=== PATIENT | female | born 1945 | race Caucasian/White ===

== ENCOUNTER 2016-07-09 12:26 | Inpatient (IN) | payer MEDICARE ==
--- NOTE | 2016-07-09 12:47 | ER Document Report ---
ED Medical Screen (RME) - General Chief Complaint: Chest Pain Stated Complaint: WEAKNESS Time seen by provider: 12:45 Mode of Arrival: Wheelchair Information source: Patient Notes: 70-year-old female presents to ED for chest pain shortness of breath sweats weakness and fatigue. She states she had open heart surgery 11/14/2015. She said the shortness of breath and weakness has been going on for about a week but it's gotten much worse in the last 2 days. One-vessel bypass I have greeted and performed a rapid initial assessment of this patient. A comprehensive ED assessment and evaluation of the patient, analysis of test results and completion of medical decision making process will be conducted by an additional ED providers. TRAVEL OUTSIDE OF THE [place] IN LAST 30 DAYS: No - Related Data Allergies/Adverse Reactions: No Known Allergies Allergy (Verified 06/14/13 21:35) Past Medical History - Past Medical History Cardiac Medical History: Reports: Hx Heart Attack, Hx Hypercholesterolemia, Hx Hypertension - meds since 2006,thought meds were for heart not BP Denies: Hx Coronary Artery Disease Pulmonary Medical History: Denies: Hx Asthma, Hx Bronchitis, Hx COPD, Hx Pneumonia Neurological Medical History: Denies: Hx Cerebrovascular Accident, Hx Seizures GI Medical History: Musculoskeltal Medical History: Reports Hx Arthritis - back, knees Psychiatric Medical History: Reports: Hx Depression Infectious Medical History: Past Surgical History: Reports: Hx Cardiac Catheterization, Hx Mastectomy - right side, Hx Orthopedic Surgery - left total knee replaced 2009. Denies: Hx Pacemaker - Immunizations Hx Diphtheria, Pertussis, Tetanus Vaccination: No Physical Exam - Vital signs Vitals: Temp Pulse Resp BP Pulse Ox 98.1 F 115 H 20 118/60 98 07/09/16 12:43 07/09/16 12:43 07/09/16 12:43 07/09/16 12:43 07/09/16 12:43 Course - Vital Signs Vital signs: Temp Pulse Resp BP Pulse Ox 98.1 F 115 H 20 118/60 98 07/09/16 12:43 07/09/16 12:43 07/09/16 12:43 07/09/16 12:43 07/09/16 12:43
[2016-07-09] MEDS ORDERED: ASPIRIN 81 MG TABLET, CHEWABLE PO ONE (12:49)
[2016-07-09 13:22] LABS: ABSOLUTE LYMPHOCYTES (AUTO) 1.5 10^3/uL (0.5-4.7); ABSOLUTE MONOCYTES (AUTO) 0.7 10^3/uL (0.1-1.4); ABSOLUTE NEUT (AUTO) 6.2 10^3/uL (1.7-8.2); BASOPHILS % (AUTO) 0.3 % (0-2); EOSINOPHILS % (AUTO) 0.1 % (0-6); HEMATOCRIT 32.7 % (36.0-47.0); HEMOGLOBIN 10.5 g/dL (12.0-15.5); HGB HCT DIFFERENCE -1.2; LYMPHOCYTES % (AUTO) 17.6 % (13-45); MEAN CORPUSCULAR HGB CONC 32.2 g/dL (32.0-36.0); MEAN CORPUSCULAR VOLUME 87 fl (80-97); MONOCYTES % (AUTO) 7.8 % (3-13); RED BLOOD COUNT 3.75 10^6/uL (3.72-5.28); RED CELL DISTRIBUTION WIDTH 17.2 % (11.5-14.0); SEGMENTED NEUTROPHILS % (AUTO) 74.2 % (42-78); WHITE BLOOD COUNT 8.4 10^3/uL (4.0-10.5)
[2016-07-09 13:41] LABS: ALANINE AMINOTRANSFERASE 30 U/L (9-52); ALKALINE PHOSPHATASE 103 U/L (38-126); ANION GAP 17 (5-19); ASPARTATE AMINO TRANSFERASE 31 U/L (14-36); BILIRUBIN,TOTAL 1.1 mg/dL (0.2-1.3); BLOOD UREA NITROGEN 20 mg/dL (7-20); CALCIUM 9.7 mg/dL (8.4-10.2); CARBON DIOXIDE 24 mmol/L (22-30); CHLORIDE 102 mmol/L (98-107); CREATINE KINASE 22 U/L (30-135); CREATININE RESULT 1.03 mg/dL (0.52-1.25); GLUCOSE 103 mg/dL (75-110); MAGNESIUM 1.7 mg/dL (1.6-2.3); POTASSIUM 4.8 mmol/L (3.6-5.0); SODIUM 142.9 mmol/L (137-145); TOTAL PROTEIN 7.3 g/dL (6.3-8.2)
[2016-07-09 13:55] LABS: CREATINE KINASE MB 0.45 ng/mL (<4.55)
[2016-07-09 13:56] LABS: TROPONIN I < 0.012 ng/mL
[2016-07-09] MEDS ORDERED: LORAZEPAM INJ 2 MG/1 ML VIAL IV ONE (14:30)
--- NOTE | 2016-07-09 14:41 | ER Document Report ---
ED General - General Mode of Arrival: Wheelchair Information source: Patient TRAVEL OUTSIDE OF THE [place] IN LAST 30 DAYS: No - HPI Onset: Other - see narrative Onset/Duration: Intermittent Quality of pain: Sharp, Stabbing Associated symptoms: Other - see narrative <MARINE LYNN - Last Filed: 07/09/16 14:42> <RIC ALMARAZ - Last Filed: 07/09/16 21:50> - General Chief Complaint: Chest Pain Stated Complaint: WEAKNESS Notes: Patient is a 70-year-old female that presents to the emergency department today with complaints of chest pain, generalized fatigue, and shortness of breath. Patient states she has been under stress recently, one week ago her sister fell and fractured her hip which has placed increased stress on the patient. Patient states for 3 days her shortness of breath and chest pain have increased. Patient states her chest pain is sharp and stabbing, and is intermittent. Patient states she feels like her muscles in her back and shoulders tighten and she is only able to take a few steps before feeling short of breath. Patient states even when lying down she feels like she needs to take deeper breaths. Patient is on a 325 mg aspirin daily. Patient appears to be depressed. (MARINE LYNN) - Related Data Allergies/Adverse Reactions: No Known Allergies Allergy (Verified 06/14/13 21:35) Past Medical History - General Information source: Patient, [facility] Records - Social History Smoking Status: Never Smoker Cigarette use (# per day): No Frequency of alcohol use: None Drug Abuse: None Lives with: Family Family History: Reviewed & Not Pertinent Patient has suicidal ideation: No Patient has homicidal ideation: No - Past Medical History Cardiac Medical History: Reports: Hx Heart Attack, Hx Hypercholesterolemia, Hx Hypertension - meds since 2006 Pulmonary Medical History: Malignancy Medical History: Reports: Hx Breast Cancer - With right-sided mastectomy GI Medical History: Musculoskeltal Medical History: Reports Hx Arthritis - back, knees Psychiatric Medical History: Reports: Hx Depression Infectious Medical History: Past Surgical History: Reports: Hx Cardiac Catheterization, Hx Mastectomy - right side, Hx Orthopedic Surgery - left total knee replaced 2009 - Immunizations Hx Diphtheria, Pertussis, Tetanus Vaccination: No Hx Pneumococcal Vaccination: 06/17/05 <MARINE LYNN - Last Filed: 07/09/16 14:42> Review of Systems - Review of Systems Constitutional: See HPI, Diaphoresis, Other - fatigue EENT: No symptoms reported Cardiovascular: See HPI, Chest pain Respiratory: See HPI, Short of breath Gastrointestinal: No symptoms reported Genitourinary: No symptoms reported Female Genitourinary: No symptoms reported Musculoskeletal: See HPI, Other - muscles "tightning" Skin: No symptoms reported Hematologic/Lymphatic: No symptoms reported Neurological/Psychological: No symptoms reported -: Yes All other systems reviewed and negative <MARINE LYNN - Last Filed: 07/09/16 14:42> Physical Exam - Vital signs Interpretation: No: Hypoxic, Tachypneic - General General appearance: Alert In distress: None - HEENT Head: Normocephalic, Atraumatic Eyes: Normal Conjunctiva: Normal Extraocular movements intact: Yes - Respiratory Respiratory status: No respiratory distress Breath sounds: Normal - Cardiovascular Rhythm: Regular Heart sounds: Normal auscultation Murmur: No - Abdominal Inspection: Obese Distension: No distension Tenderness: Nontender - Back Back: Tender - Posterior cervical muscles and trapezius muscles are tender with palpation - Extremities General upper extremity: Normal inspection, Nontender, Normal ROM. No: Edema General lower extremity: Normal inspection, Nontender, Normal ROM. No: Edema - Neurological Neuro grossly intact: Yes Cognition: Normal Orientation: AAOx4 - Psychological Associated symptoms: Depressed <MARINE LYNN - Last Filed: 07/09/16 14:42> <RIC ALMARAZ - Last Filed: 07/09/16 21:50> - Vital signs Vitals: Temp Pulse Resp BP Pulse Ox 98.1 F 115 H 20 118/60 98 07/09/16 12:43 07/09/16 12:43 07/09/16 12:43 07/09/16 12:43 07/09/16 12:43 (MARINE LYNN) (RIC ALMARAZ) - Skin Notes: Diffuse excoriations in various stages of healing on arms bilaterally (MARINE LYNN) Course - Laboratory Result Diagrams: 07/09/16 13:00 07/09/16 13:00 <MARINE LYNN - Last Filed: 07/09/16 14:42> - Laboratory Result Diagrams: 07/09/16 13:00 07/09/16 13:00 - Diagnostic Test Radiology reviewed: Image reviewed, Reports reviewed - Chest x-ray showed right mastectomy, no acute process. - EKG Interpretation by Me EKG shows normal: Sinus rhythm, Patriot, Intervals, QRS Complexes, ST-T Waves Rate: Normal - 97 Rhythm: NSR - Consults Dr. Gonzalez Time consulted: 21:50 Consulted provider: will come to ER <RIC ALMARAZ - Last Filed: 07/09/16 21:50> - Re-evaluation Re-evalutation: 07/09/16 15:00 The patient complains of fatigue, intermittent sharp left-sided chest pains, dyspnea on exertion with an underlying pervasive dyspnea. Her EKG chest x-ray cardiac enzymes are all normal. Her d-dimer is elevated at 2.83, we'll get a CTA chest to exclude pulmonary embolus as a cause of her symptoms. 07/09/16 21:49 CT scan shows extensive mediastinal adenopathy consistent with lymphoma or metastatic disease. This is probably the source of her elevated dimer and her symptoms. She had a CTA chest in 2012 which did not show any of this disease. ( RIC ALMARAZ) - Vital Signs Vital signs: Temp Pulse Resp BP Pulse Ox 98.1 F 115 H 19 106/79 96 07/09/16 12:44 07/09/16 12:44 07/09/16 21:00 07/09/16 14:08 07/09/16 21:00 (MARINE LYNN) (RIC ALMARAZ) - Laboratory Laboratory results interpreted by me: 07/09/16 07/09/16 07/09/16 13:00 13:00 13:00 Hgb 10.5 L Hct 32.7 L RDW 17.2 H D-Dimer 2.83 H Est GFR (Non-Af Amer) 53 L Creatine Kinase 22 L (MARINE LYNN) (RIC ALMARAZ) Discharge <MARINE LYNN - Last Filed: 07/09/16 14:42> - Discharge Admitting Provider: Hospitalist Unit Admitted: Telemetry <RIC ALMARAZ - Last Filed: 07/09/16 21:50> - Discharge Clinical Impression: Mediastinal adenopathy Dyspnea Qualifiers: Dyspnea type: unspecified Qualified Code(s): R06.00 - Dyspnea, unspecified Condition: Stable Disposition: ADMITTED INPATIENT Referrals: BJ MARLOW MD [Primary Care Provider] - Follow up as needed Scribe Attestation: 07/09/16 21:50 I personally performed the services described in the documentation, reviewed and edited the documentation which was dictated to the scribe in my presence, and it accurately records my words and actions. (RIC ALMARAZ) Scribe Documentation - Scribe Written by Scribe:: Kelli Nunez, [id number] 07/09/16 acting as scribe for :: Rianna <MARINE LYNN - Last Filed: 07/09/16 14:42>
--- NOTE | 2016-07-09 15:50 | EKG REPORT ---
SEVERITY:- NORMAL ECG - SINUS RHYTHM : Confirmed by: Jose Mann 09-Jul-2016 15:49:42
--- NOTE | 2016-07-09 18:43 | Operative Report ---
Operative Report DATE OF SURGERY: 07/09/16 PREOPERATIVE DIAGNOSIS: Acute chest pain POSTOPERATIVE DIAGNOSIS: Same OPERATION: 1. Focused ultrasound the right groin. 2. Ultrasound directed insertion of triple-lumen central venous access catheter SURGEON: AC LEROY ANESTHESIA: Local TISSUE REMOVED OR ALTERED: None COMPLICATIONS: None ESTIMATED BLOOD LOSS: minimal INTRAOPERATIVE FINDINGS: See below PROCEDURE: Patient was seen in the emergency department, room 3, right groin was exposed. His prepped and draped sterile fashion. Surgical plan surgical timeout were conducted. Using the variable frequency linear transducer, the right groin was scanned. The common femoral vein was felt to be suitable for cannulation Skin was anesthetized 1% lidocaine without epinephrine. Using the Seldinger technique, with ultrasound as a guide, triple-lumen central venous access catheter was threaded into The right femoral vein. There was excellent blood flow through all 3 lm. Catheter flushed with saline. Skin with 2-0 silk suture. Sterile dressings applied. Postoperative procedure well.
[2016-07-09] MEDS ORDERED: MAGNESIUM HYDROXIDE SUSP 30 ML UDCUP PO PRN (21:48)
[2016-07-09] MEDS ORDERED: IPRATROPIUM/ALBUTEROL 0.5-2.5 MG/3 ML AMPUL NEB PRN (21:48)
[2016-07-09] MEDS ORDERED: ACETAMINOPHEN 325 MG TABLET PO PRN (21:48)
[2016-07-09] MEDS ORDERED: ONDANSETRON HCL INJ/PF 4 MG/2 ML SDV IV PRN (21:48)
[2016-07-09] MEDS ORDERED: ATORVASTATIN CALCIUM 40 MG TABLET PO SCH (22:00)
[2016-07-09 23:47] LABS: CREATINE KINASE MB 0.34 ng/mL (<4.55)
[2016-07-09 23:52] LABS: TROPONIN I < 0.012 ng/mL
[2016-07-10] MEDS: HEPARIN SOD (PORCINE) 5,000 UNIT/ML 1 ML SYRINGE SUBCUT SCH ×2 (02:41→07:09)
[2016-07-10] MEDS ORDERED: ACETAMINOPHEN 325 MG TABLET PO PRN (04:07)
--- NOTE | 2016-07-10 04:42 | PDOC H&P ---
History of Present Illness Admission Date/PCP: 07/09/16 21:59 BJ MARLOW MD Patient complains of: Chest pain and shortness of breath History of Present Illness: MATILDE STEPHENS is a 70 year old female with a past medical history of coronary artery disease status post coronary artery bypass grafting in October 2015, and right-sided breast cancer status post mastectomy and chemotherapy completion greater than 4 years ago. She has been her usual state of health until approximately 3 weeks ago noting to have extraordinary fatigue, 40 pound weight loss in 6 months, night sweats sharp chest pain with while at rest prompting her to seek evaluation emergency room. History indicated a CT of the chest which required a central line placed in the right groin, the CT resulted include massive mediastinal adenopathy but no pulmonary emboli. Images referred to the hospitalist for admission. Past Medical History Cardiac Medical History: Reports: Myocardial Infarction, Hyperlipidema, Hypertension - meds since 2006 Denies: Coronary Artery Disease Pulmonary Medical History: Denies: Asthma, Bronchitis, Chronic Obstructive Pulmonary Disease (COPD), Pneumonia Neurological Medical History: Denies: Seizures Malignancy Medical History: Reports: Breast Cancer - With right-sided mastectomy GI Medical History: Musculoskeltal Medical History: Reports: Arthritis - back, knees Psychiatric Medical History: Reports: Depression Denies: Substance Abuse, Tobacco Dependency Hematology: Denies: Anemia Past Surgical History Past Surgical History: Reports: Cardiac Catheterization, Mastectomy - right side , Orthopedic Surgery - left total knee replaced 2009 Denies: Pacemaker Social History Lives with: Family Smoking Status: Never Smoker Frequency of Alcohol Use: None Hx Recreational Drug Use: No Drugs: None - Advance Directive Resuscitation Status: Full Code Family History Family History: COPD, Malignancy Parental Family History Reviewed: Yes Children Family History Reviewed: Yes Sibling(s) Family History Reviewed.: Yes Medication/Allergy Home Medications: Metoprolol Tartrate [Lopressor 25 mg Tablet] 50 mg PO BID 05/14/11 Atorvastatin Calcium [Lipitor 40 mg Tablet] 80 mg PO QHS 01/09/13 Letrozole [Femara 2.5 mg Tablet] 2.5 mg PO DAILY 01/09/13 Aspirin [Aspirin EC] 1 tab PO DAILY 06/14/13 B12/Levomefolate Calcium/B-6 [Wollx-Halnlaeyqa-Rkkttbzqh Tb] 1 tab PO DAILY Venlafaxine HCl ER [Effexor Xr 75 mg Cap.sr] 1 tab PO DAILY 06/14/13 Allergies/Adverse Reactions: No Known Allergies Allergy (Verified 06/14/13 21:35) Review of Systems Constitutional: PRESENT: anorexia, chills, fatigue, night sweats, weakness, weight loss Eyes: ABSENT: visual disturbances Ears: ABSENT: hearing changes Nose, Mouth, and Throat: ABSENT: headache(s), mouth pain, sore throat Breasts: PRESENT: as per HPI Cardiovascular: PRESENT: other - Reproducible costochondral pain. ABSENT: chest pain, dyspnea on exertion, edema, orthropnea, palpitations Respiratory: PRESENT: cough, dyspnea. ABSENT: hemoptysis, sputum Gastrointestinal: ABSENT: abdominal pain, constipation, diarrhea, hematemesis, hematochezia, nausea, vomiting Genitourinary: ABSENT: dysuria, hematuria Musculoskeletal: ABSENT: joint swelling Integumentary: ABSENT: rash, wounds Neurological: ABSENT: abnormal gait, abnormal speech, confusion, dizziness, focal weakness, syncope Psychiatric: ABSENT: anxiety, depression, homidical ideation, suicidal ideation Endocrine: ABSENT: cold intolerance, heat intolerance, polydipsia, polyuria Hematologic/Lymphatic: ABSENT: easy bleeding, easy bruising Physical Exam Vital Signs: Temp Pulse Resp BP Pulse Ox 98.3 F 105 H 18 133/52 H 98 07/10/16 02:47 07/10/16 02:47 07/10/16 02:47 07/10/16 02:47 07/10/16 02:47 General appearance: PRESENT: no acute distress, cooperative, obese, well- developed, well-nourished. ABSENT: disheveled Head exam: PRESENT: atraumatic, normocephalic Eye exam: PRESENT: conjunctiva pink, EOMI, PERRLA. ABSENT: scleral icterus Ear exam: PRESENT: normal external ear exam Mouth exam: PRESENT: moist, tongue midline Neck exam: ABSENT: carotid bruit, JVD, lymphadenopathy, thyromegaly Respiratory exam: PRESENT: clear to auscultation bhanu. ABSENT: rales, rhonchi, wheezes Cardiovascular exam: PRESENT: RRR. ABSENT: diastolic murmur, rubs, systolic murmur Pulses: PRESENT: normal dorsalis pedis pul Vascular exam: PRESENT: normal capillary refill GI/Abdominal exam: PRESENT: normal bowel sounds, soft. ABSENT: distended, guarding, mass, organolmegaly, rebound, tenderness Rectal exam: PRESENT: deferred Extremities exam: PRESENT: full ROM. ABSENT: calf tenderness, clubbing, pedal edema Neurological exam: PRESENT: alert, awake, oriented to person, oriented to place , oriented to time, oriented to situation, CN II-XII grossly intact. ABSENT: motor sensory deficit Psychiatric exam: PRESENT: appropriate affect, normal mood. ABSENT: homicidal ideation, suicidal ideation Skin exam: PRESENT: dry, intact, warm. ABSENT: cyanosis, rash Results Laboratory Results: 07/09/16 07/09/16 22:55 22:55 Creatine Kinase < 20 L CK-MB (CK-2) 0.34 Troponin I < 0.012 Impressions: Chest X-Ray 07/09/16 12:48 IMPRESSION: No acute changes Chest/Abdomen CTA 07/09/16 14:58 IMPRESSION: No evidence for pulmonary embolic disease. No consolidations or pleural effusions are identified. There is extensive mediastinal adenopathy. Adenopathy is also identified in the periaortic region and retrocrural adenopathy is seen. Clinical correlation is recommended. The possibility of a lymphoma or metastatic disease should be considered. Other findings as noted above Assessment & Plan - Diagnosis (1) Chest pain Is this a current diagnosis for this admission?: YesPlan: Though patient has to sources of chest pain her current sharp pain is atypical for coronary artery disease, she does have costochondral pain following open heart surgery she'll receive symptomatic management and second sharp pain associated with respirations likely secondary to mediastinal malignancy and will receive workup and symptomatically management (2) Dyspnea Qualifiers: Dyspnea type: unspecified Qualified Code(s): R06.00 - Dyspnea, unspecified Is this a current diagnosis for this admission?: YesPlan: Albuterol, Atrovent utilizer and oxygen trial, with symptomatically management (3) Mediastinal adenopathy Is this a current diagnosis for this admission?: YesPlan: Oncology consult - Time Time Spent: 50 to 70 Minutes
[2016-07-10 06:02] LABS: ABSOLUTE BASOPHILS # (AUTO) 0.1 10^3/uL (0.0-0.2); ABSOLUTE LYMPHOCYTES (AUTO) 0.9 10^3/uL (0.5-4.7); ABSOLUTE MONOCYTES (AUTO) 0.6 10^3/uL (0.1-1.4); ABSOLUTE NEUT (AUTO) 5.5 10^3/uL (1.7-8.2); BASOPHILS % (AUTO) 0.8 % (0-2); EOSINOPHILS % (AUTO) 0.3 % (0-6); HEMATOCRIT 28.4 % (36.0-47.0); HEMOGLOBIN 9.1 g/dL (12.0-15.5); HGB HCT DIFFERENCE -1.1; LYMPHOCYTES % (AUTO) 12.8 % (13-45); MEAN CORPUSCULAR HGB CONC 32.1 g/dL (32.0-36.0); MEAN CORPUSCULAR VOLUME 87 fl (80-97); MONOCYTES % (AUTO) 8.4 % (3-13); RED BLOOD COUNT 3.26 10^6/uL (3.72-5.28); RED CELL DISTRIBUTION WIDTH 16.9 % (11.5-14.0); SEGMENTED NEUTROPHILS % (AUTO) 77.7 % (42-78); WHITE BLOOD COUNT 7.1 10^3/uL (4.0-10.5)
[2016-07-10 06:11] LABS: ANION GAP 11 (5-19); BLOOD UREA NITROGEN 18 mg/dL (7-20); CALCIUM 8.9 mg/dL (8.4-10.2); CARBON DIOXIDE 26 mmol/L (22-30); CHLORIDE 102 mmol/L (98-107); CHOLESTEROL 141.53 mg/dL (0-200); CREATININE RESULT 0.87 mg/dL (0.52-1.25); Direct HDL 30 mg/dL (>40); GLUCOSE 104 mg/dL (75-110); POTASSIUM 3.9 mmol/L (3.6-5.0); SODIUM 138.9 mmol/L (137-145); TRIGLYCERIDES 146 mg/dL (<150)
[2016-07-10 06:22] LABS: DIRECT LDL 89 mg/dL (<100)
[2016-07-10 06:23] LABS: CREATINE KINASE MB 0.35 ng/mL (<4.55)
[2016-07-10 06:27] LABS: CREATINE KINASE < 20 U/L (30-135); TROPONIN I < 0.012 ng/mL
--- NOTE | 2016-07-10 08:20 | PDOC CONSULTATION ---
Consultation Consult Date: 07/10/16 Attending physician:: JEFF VILLAFANA Consult reason:: New diffuse LAD w/ hx of stage III breast cancer, recent CP and SOB History of Present Illness Admission Date/PCP: 07/09/16 21:48 BJ MARLOW MD Patient complains of: SOB/CP History of Present Illness: 70-year-old female who I've known now for about 5 years with previous history of stage III breast cancer, status post surgery and chemotherapy, was been disease free for greater than 4 years now. He is also had significant history of cardiovascular disease and ultimately had CABG done in October of last year. Since the CABG she has had significant costochondritis. Recently, her sister who had been with her for several years caring for her through her multiple issues over the years, fell and broke her hip. So now Deisy was having to take care of her sister, and was very active try to get her up and move around. Over the last 1-2 weeks she's been experiencing increasing chest pain some palpitations and shortness of breath. Ultimately this culminated in fairly severe shortness of breath and chest pain and she came into the ED. She had a cardiac workup which initially was negative. She had a d-dimer evaluation which was positive, this resulted in her getting a CTA, this indicated no pulmonary embolism but indicated mediastinal retroperitoneal adenopathy. The seem to be a change from previous imaging that was done over 4 years ago. She denies any significant weight loss. She denies any fevers chills or night sweats. Prior to the last 2 weeks she's been actually feeling quite well, we saw her about 3 months ago and at that time she was doing quite well. Past Medical History Cardiac Medical History: Reports: Myocardial Infarction, Hyperlipidema, Hypertension - meds since 2006 Denies: Coronary Artery Disease Pulmonary Medical History: Denies: Asthma, Bronchitis, Chronic Obstructive Pulmonary Disease (COPD), Pneumonia Neurological Medical History: Denies: Seizures Malignancy Medical History: Reports: Breast Cancer - With right-sided mastectomy GI Medical History: Musculoskeltal Medical History: Reports: Arthritis - back, knees Psychiatric Medical History: Reports: Depression Denies: Substance Abuse, Tobacco Dependency Hematology: Denies: Anemia Past Surgical History Past Surgical History: Reports: Cardiac Catheterization, Mastectomy - right side , Orthopedic Surgery - left total knee replaced 2009, Other - Port placement and removal Denies: Pacemaker Social History Lives with: Family Smoking Status: Never Smoker Frequency of Alcohol Use: None Hx Recreational Drug Use: No Drugs: None - Advance Directive Resuscitation Status: Full Code Family History Family History: COPD, Malignancy Parental Family History Reviewed: Yes Children Family History Reviewed: Yes Sibling(s) Family History Reviewed.: Yes Medication/Allergy Home Medications: Metoprolol Tartrate [Lopressor 25 mg Tablet] 50 mg PO BID 05/14/11 Atorvastatin Calcium [Lipitor 40 mg Tablet] 80 mg PO QHS 01/09/13 Letrozole [Femara 2.5 mg Tablet] 2.5 mg PO DAILY 01/09/13 Aspirin [Aspirin EC] 1 tab PO DAILY 06/14/13 B12/Levomefolate Calcium/B-6 [Fhltj-Valrpmnubp-Fxrznqklt Tb] 1 tab PO DAILY Venlafaxine HCl ER [Effexor Xr 75 mg Cap.sr] 1 tab PO DAILY 06/14/13 Allergies/Adverse Reactions: No Known Allergies Allergy (Verified 06/14/13 21:35) Review of Systems Constitutional: ABSENT: chills, fever(s), headache(s), weight gain, weight loss Eyes: ABSENT: visual disturbances Ears: ABSENT: hearing changes Cardiovascular: PRESENT: chest pain, dyspnea on exertion, palpitations Respiratory: ABSENT: cough, hemoptysis Gastrointestinal: ABSENT: abdominal pain, constipation, diarrhea, hematemesis, hematochezia, nausea, vomiting Genitourinary: ABSENT: dysuria, hematuria Musculoskeletal: ABSENT: joint swelling Integumentary: ABSENT: rash, wounds Neurological: ABSENT: abnormal gait, abnormal speech, confusion, dizziness, focal weakness, syncope Psychiatric: ABSENT: anxiety, depression, homidical ideation, suicidal ideation Endocrine: ABSENT: cold intolerance, heat intolerance, polydipsia, polyuria Hematologic/Lymphatic: ABSENT: easy bleeding, easy bruising Physical Exam Vital Signs: Temp Pulse Resp BP Pulse Ox 99.2 F 94 18 137/62 H 95 07/10/16 05:00 07/10/16 08:00 07/10/16 08:00 07/10/16 05:00 07/10/16 08:00 Intake & Output 07/09/16 07/10/16 07/11/16 06:59 06:59 06:59 Weight 96.5 kg General appearance: PRESENT: no acute distress, well-developed, well-nourished Head exam: PRESENT: atraumatic, normocephalic Eye exam: PRESENT: conjunctiva pink, EOMI, PERRLA. ABSENT: scleral icterus Ear exam: PRESENT: normal external ear exam Mouth exam: PRESENT: moist, tongue midline Neck exam: ABSENT: carotid bruit, JVD, lymphadenopathy, thyromegaly Respiratory exam: PRESENT: clear to auscultation bhanu. ABSENT: rales, rhonchi, wheezes Cardiovascular exam: PRESENT: RRR. ABSENT: diastolic murmur, rubs, systolic murmur Pulses: PRESENT: normal dorsalis pedis pul Vascular exam: PRESENT: normal capillary refill GI/Abdominal exam: PRESENT: normal bowel sounds, soft. ABSENT: distended, guarding, mass, organolmegaly, rebound, tenderness Rectal exam: PRESENT: deferred Extremities exam: PRESENT: full ROM. ABSENT: calf tenderness, clubbing, pedal edema Neurological exam: PRESENT: alert, awake, oriented to person, oriented to place , oriented to time, oriented to situation, CN II-XII grossly intact. ABSENT: motor sensory deficit Psychiatric exam: PRESENT: appropriate affect, normal mood. ABSENT: homicidal ideation, suicidal ideation Skin exam: PRESENT: dry, intact, warm. ABSENT: cyanosis, rash Results Laboratory Results: 07/10/16 05:45 07/10/16 05:45 07/10/16 07/10/16 05:45 05:45 WBC 7.1 RBC 3.26 L Hgb 9.1 L Hct 28.4 L MCV 87 MCH 28.0 MCHC 32.1 RDW 16.9 H Plt Count 156 Seg Neutrophils % 77.7 Lymphocytes % 12.8 L Monocytes % 8.4 Eosinophils % 0.3 Basophils % 0.8 Absolute Neutrophils 5.5 Absolute Lymphocytes 0.9 Absolute Monocytes 0.6 Absolute Eosinophils 0.0 Absolute Basophils 0.1 Sodium 138.9 Potassium 3.9 Chloride 102 Carbon Dioxide 26 Anion Gap 11 BUN 18 Creatinine 0.87 Est GFR ( Amer) > 60 Est GFR (Non-Af Amer) > 60 Glucose 104 Calcium 8.9 Triglycerides 146 Cholesterol 141.53 LDL Cholesterol Direct 89 VLDL Cholesterol 29.0 HDL Cholesterol 30 L 07/09/16 07/09/16 07/10/16 22:55 22:55 05:45 Creatine Kinase < 20 L < 20 L CK-MB (CK-2) 0.34 Troponin I < 0.012 07/10/16 05:45 Creatine Kinase CK-MB (CK-2) 0.35 Troponin I < 0.012 Impressions: Chest X-Ray 07/09/16 12:48 IMPRESSION: No acute changes Chest/Abdomen CTA 07/09/16 14:58 IMPRESSION: No evidence for pulmonary embolic disease. No consolidations or pleural effusions are identified. There is extensive mediastinal adenopathy. Adenopathy is also identified in the periaortic region and retrocrural adenopathy is seen. Clinical correlation is recommended. The possibility of a lymphoma or metastatic disease should be considered. Other findings as noted above Status: Image reviewed by me Assessment & Plan - Diagnosis (1) Mediastinal adenopathy Is this a current diagnosis for this admission?: YesPlan: Patient with mediastinal and retroperitoneal adenopathy, she's not truly symptomatic of a lymphoma-type situation patients with breast cancer are not at an increased chance of lymphoma. However certainly this could be a possibility. She feels much better today, not currently having chest pain or shortness of breath, she did get up to the restroom without difficulty overnight. I've asked her to walk in the marcelo and see how she feels, she feels okay believe she can be discharged home. We will set up a PET scan as an outpatient to further evaluate the adenopathy. If the adenopathy is positive on the PET scan then we would pursue biopsy, most likely she would require endobronchial ultrasound with biopsy of the mediastinal nodes, I don't believe the retroperitoneal nodes are easily accessible by biopsy. If the PET scan is negative, we would not pursue these nodes. It is quite possible that all of her symptoms are from her known severe costochondritis that was irritated by having to help her sister out a lot more after she fractured her hip. - Time Time Spent: Greater than 70 Minutes Critical Time spent with patient: 35 or more minutes Anticipated discharge: Home Within: within 24 hours - Inpatient Certification Based on my medical assessment, after consideration of the patient's comorbidities, presenting symptoms, or acuity I expect that the services needed warrant INPATIENT care.: Yes I certify that my determination is in accordance with my understanding of Medicare's requirements for reasonable and necessary INPATIENT services [42 CFR 412.3e].: Yes Medical Necessity: Failure to Improve With Outpatient Therapy, Need for Pain Control
[2016-07-10] MEDS ORDERED: [UNRECOGNIZED DRUG - OTHER] PO SCH (10:00)
[2016-07-10] MEDS ORDERED: LETROZOLE 2.5 MG TABLET PO SCH (10:00)
[2016-07-10] MEDS ORDERED: B12 PO SCH (10:00)
[2016-07-10] MEDS ORDERED: VENLAFAXINE HCL 75 MG CAP.SR.24H PO SCH (10:00)
[2016-07-10] MEDS ORDERED: ASPIRIN 81 MG TABLET, ENT COATED PO SCH (10:00)
[2016-07-10] MEDS ORDERED: B6 PO SCH (10:00)
[2016-07-10] MEDS ORDERED: DOCUSATE SODIUM 100 MG CAPSULE PO SCH (10:00)
[2016-07-10] MEDS ORDERED: LEVOMEFOLATE CALCIUM PO SCH (10:00)
[2016-07-10] MEDS ORDERED: METOPROLOL TARTRATE 50 MG TABLET PO ONE (11:30)
[2016-07-10 12:21] LABS: TROPONIN I < 0.012 ng/mL
[2016-07-10 15:49] VITALS: BP 137/62
--- NOTE | 2016-07-10 16:21 | PDOC DISCHARGE SUMMARY ---
General - Admit/Disc Date/PCP Admission Date/Primary Care Provider: 07/09/16 21:48 BJ MARLOW MD Oncologist: Dr. Rothman Discharge Date: 07/10/16 - Discharge Diagnosis (1) Mediastinal adenopathy Is this a current diagnosis for this admission?: Yes (2) Chest pain Is this a current diagnosis for this admission?: YesSummary: Thought to be secondary to the patient's persistent costochondritis due to sternotomy. (3) Hypertension Is this a current diagnosis for this admission?: Yes - Additional Information Resuscitation Status: Full Code Discharge Diet: As Tolerated Discharge Activity: Activity As Tolerated Home Medications: Metoprolol Tartrate [Lopressor 25 mg Tablet] 50 mg PO BID 05/14/11 Atorvastatin Calcium [Lipitor 40 mg Tablet] 80 mg PO QHS 01/09/13 Letrozole [Femara 2.5 mg Tablet] 2.5 mg PO DAILY 01/09/13 Aspirin [Aspirin EC] 1 tab PO DAILY 06/14/13 B12/Levomefolate Calcium/B-6 [Quelm-Wfqgcvujiw-Ixqkucysu Tb] 1 tab PO DAILY Venlafaxine HCl ER [Effexor Xr 75 mg Cap.sr] 1 tab PO DAILY 06/14/13 History of Present Illness Patient complains of: Chest pain History of Present Illness: MATILDE STEPHENS is a 70 year old female with a past medical history of coronary artery disease status post coronary artery bypass grafting in October 2015, and right-sided breast cancer status post mastectomy and chemotherapy completion greater than 4 years ago. She has been her usual state of health until approximately 3 weeks ago noting to have extraordinary fatigue, 40 pound weight loss in 6 months, night sweats sharp chest pain with while at rest prompting her to seek evaluation emergency room. History indicated a CT of the chest which required a central line placed in the right groin, the CT resulted include massive mediastinal adenopathy but no pulmonary emboli. Images referred to the hospitalist for admission. Hospital Course Hospital Course: The patient was observed in a continues telemetry unit, serial cardiac enzymes were obtained which were nonsuggestive. The patient's EKG revealed no acute changes and the patient had no events on monitor technician. Patient had no further replication of symptoms. The patient was seen and evaluated by her oncologist Dr. Rothman. Is telling the patient did have significant costochondritis postoperatively. The patient's symptoms and lymph nodes may be reactive to this. She has responded well to pain medicine and states that her symptoms overall have resolved. The patient is quite eager for discharge. Physical Exam Vital Signs: Temp Pulse Resp BP Pulse Ox 99.3 F 85 14 137/62 H 97 07/10/16 15:24 07/10/16 15:24 07/10/16 15:24 07/10/16 15:24 07/10/16 15:24 Intake & Output 07/08/16 07/09/16 07/10/16 23:59 23:59 23:59 Weight 96.5 kg General appearance: PRESENT: no acute distress, cooperative, well-developed, well-nourished Head exam: PRESENT: atraumatic, normocephalic Eye exam: PRESENT: conjunctiva pink, EOMI, PERRLA. ABSENT: scleral icterus Ear exam: PRESENT: normal external ear exam Mouth exam: PRESENT: moist, tongue midline Neck exam: ABSENT: carotid bruit, JVD, lymphadenopathy, thyromegaly Respiratory exam: PRESENT: clear to auscultation bhanu, symmetrical, unlabored. ABSENT: rales, rhonchi, tachypnea, wheezes Cardiovascular exam: PRESENT: RRR. ABSENT: diastolic murmur, rubs, systolic murmur Pulses: PRESENT: normal dorsalis pedis pul Vascular exam: PRESENT: normal capillary refill GI/Abdominal exam: PRESENT: normal bowel sounds, soft. ABSENT: distended, guarding, mass, organolmegaly, rebound, tenderness Rectal exam: PRESENT: deferred Extremities exam: PRESENT: full ROM. ABSENT: calf tenderness, clubbing, pedal edema Neurological exam: PRESENT: alert, awake, oriented to person, oriented to place , oriented to time, oriented to situation, CN II-XII grossly intact. ABSENT: motor sensory deficit Psychiatric exam: PRESENT: appropriate affect, normal mood. ABSENT: homicidal ideation, suicidal ideation Skin exam: PRESENT: dry, intact, warm. ABSENT: cyanosis, rash Results Laboratory Results: 07/10/16 05:45 07/10/16 05:45 07/10/16 07/10/16 05:45 05:45 WBC 7.1 RBC 3.26 L Hgb 9.1 L Hct 28.4 L MCV 87 MCH 28.0 MCHC 32.1 RDW 16.9 H Plt Count 156 Seg Neutrophils % 77.7 Lymphocytes % 12.8 L Monocytes % 8.4 Eosinophils % 0.3 Basophils % 0.8 Absolute Neutrophils 5.5 Absolute Lymphocytes 0.9 Absolute Monocytes 0.6 Absolute Eosinophils 0.0 Absolute Basophils 0.1 Sodium 138.9 Potassium 3.9 Chloride 102 Carbon Dioxide 26 Anion Gap 11 BUN 18 Creatinine 0.87 Est GFR ( Amer) > 60 Est GFR (Non-Af Amer) > 60 Glucose 104 Calcium 8.9 Triglycerides 146 Cholesterol 141.53 LDL Cholesterol Direct 89 VLDL Cholesterol 29.0 HDL Cholesterol 30 L 07/09/16 07/09/16 07/10/16 22:55 22:55 05:45 Creatine Kinase < 20 L < 20 L CK-MB (CK-2) 0.34 Troponin I < 0.012 07/10/16 07/10/16 07/10/16 05:45 10:58 10:58 Creatine Kinase < 20 L CK-MB (CK-2) 0.35 0.40 Troponin I < 0.012 < 0.012 Impressions: Chest X-Ray 07/09/16 12:48 IMPRESSION: No acute changes Chest/Abdomen CTA 07/09/16 14:58 IMPRESSION: No evidence for pulmonary embolic disease. No consolidations or pleural effusions are identified. There is extensive mediastinal adenopathy. Adenopathy is also identified in the periaortic region and retrocrural adenopathy is seen. Clinical correlation is recommended. The possibility of a lymphoma or metastatic disease should be considered. Other findings as noted above Qualifiers PATEINT BEING DISCHARGED WITH ANY OF THE FOLLOWING DIAGNOSIS?: No Plan Discharge Plan: Time spent on this discharge including assessment plan physical examination specialty collaboration is 60 minutes Time Spent: Greater than 30 Minutes
[2016-07-10] MEDS ORDERED: METOPROLOL TARTRATE 50 MG TABLET PO SCH (22:00)
[2016-07-11] MEDS ORDERED: CYANOCOBALAMIN/FA/PYRIDOXINE TABLET PO SCH (10:00)
== END 2016-07-10 16:25 | disposition home or self-care (01) | DRG 816 ==
LOC: ER 12:26 → EH 21:48 → UNDOADMIN 21:59 → 5 07-10 02:00 → EH 07-10 02:00
PROVIDERS: ADMIT Internal Medicine; ATTEND Internal Medicine
PROC: 06HM33Z Insertion of Infusion Device into Right Femoral Vein, Percutaneous Approach (ICD-10-PCS; principal; 2016-07-09)
PROC: B54BZZA Ultrasonography of Right Lower Extremity Veins, Guidance (ICD-10-PCS; 2016-07-09)
DX: R59.0 Localized enlarged lymph nodes (principal); M94.0 Chondrocostal junction syndrome [Tietze]; R07.89 Other chest pain; I25.10 Atherosclerotic heart disease of native coronary artery without angina pectoris; R63.4 Abnormal weight loss; M19.90 Unspecified osteoarthritis, unspecified site; F32.9 Major depressive disorder, single episode, unspecified; E78.5 Hyperlipidemia, unspecified; Z96.652 Presence of left artificial knee joint; Z95.1 Presence of aortocoronary bypass graft; Z92.21 Personal history of antineoplastic chemotherapy; Z90.11 Acquired absence of right breast and nipple; I25.2 Old myocardial infarction; Z79.899 Other long term (current) drug therapy; Z79.82 Long term (current) use of aspirin
CPT/HCPCS: 36415; 71020; 71275; 80048; 80053; 80061; 82550; 82553; 83735; 83880; 84484; 85025; 85379; 93005; 93010; 99285; J1644; J3490

== ENCOUNTER → 2016-07-29 | Outpatient (CLI) | payer MEDICARE | LOC: RAD 18:39 | PROVIDERS: ATTEND Internal Medicine | DX: C50.311 Malignant neoplasm of lower-inner quadrant of right female breast (principal) | CPT/HCPCS: 78815; A9552 ==

== ENCOUNTER → 2016-08-09 | Day surgery (SDC) | payer MEDICARE ==
[~2016-08-09] MED LIST: LIDOCAINE 2% INJ (20 MG/ML) 20 ML MDV ONE
== END ==
LOC: WI 09:51
PROVIDERS: ATTEND Internal Medicine
PROC: 0HBU3ZX Excision of Left Breast, Percutaneous Approach, Diagnostic (ICD-10-PCS; principal; 2016-08-09)
DX: C85.14 Unspecified B-cell lymphoma, lymph nodes of axilla and upper limb (principal); C50.311 Malignant neoplasm of lower-inner quadrant of right female breast; R59.0 Localized enlarged lymph nodes
CPT/HCPCS: 88342 ×2; 88341 ×2; 88305 ×2; 19083; J3490

== ENCOUNTER → 2016-08-16 | Outpatient (CLI) | payer MEDICARE | LOC: RAD 10:34 | PROVIDERS: ATTEND Internal Medicine | DX: Z08 Encounter for follow-up examination after completed treatment for malignant neoplasm (principal); C50.311 Malignant neoplasm of lower-inner quadrant of right female breast | CPT/HCPCS: 78472; A9560; Q9969 ==

== ENCOUNTER 2016-08-28 08:44 | Day surgery (SDC) | payer MEDICARE ==
[~2016-08-28 08:44] MED LIST changes: +CEFAZOLIN 1 GM/D5W RTU 1 GM/50 ML RTUPB IV PRN; +DEXTROSE 5%-1/2 NORMAL SALINE 1,000 ML IV PRN; -LIDOCAINE 2% INJ (20 MG/ML) 20 ML MDV ONE
[2016-08-28 09:19] LABS: HEMATOCRIT 30.4 % (36.0-47.0); HEMOGLOBIN 9.6 g/dL (12.0-15.5); HGB HCT DIFFERENCE -1.6; MEAN CORPUSCULAR HEMOGLOBIN 28.3 pg (27.0-33.4); MEAN CORPUSCULAR HGB CONC 31.7 g/dL (32.0-36.0); MEAN CORPUSCULAR VOLUME 89 fl (80-97); RED BLOOD COUNT 3.41 10^6/uL (3.72-5.28); RED CELL DISTRIBUTION WIDTH 16.8 % (11.5-14.0); WHITE BLOOD COUNT 17.3 10^3/uL (4.0-10.5)
[2016-08-28 09:34] LABS: ANION GAP 10 (5-19); BLOOD UREA NITROGEN 13 mg/dL (7-20); CALCIUM 9.2 mg/dL (8.4-10.2); CARBON DIOXIDE 27 mmol/L (22-30); CHLORIDE 107 mmol/L (98-107); CREATININE RESULT 0.54 mg/dL (0.52-1.25); GLUCOSE 93 mg/dL (75-110); POTASSIUM 3.4 mmol/L (3.6-5.0); SODIUM 143.6 mmol/L (137-145)
[2016-08-28] MEDS ORDERED: LIDOCAINE 0.5% INJ-PF (5 MG/ML) 50 ML SDV ONE (09:39)
[2016-08-28] MEDS ORDERED: MIDAZOLAM 2 MG/2 ML INJ ONE (10:03)
[2016-08-28] MEDS ORDERED: FENTANYL CITRATE INJ/PF 100 MCG/2 ML AMPUL ONE (10:04)
[2016-08-28] MEDS ORDERED: BACITRACIN INJ 50,000 UNIT VIAL IR ONE (11:00)
--- NOTE | 2016-08-28 12:08 | PDOC DISCHARGE SUMMARY ---
Discharge Summary (SDC) - Discharge Final Diagnosis: #1 lymphoma. #2 history of right breast cancer. Date of Surgery: 08/28/16 Condition: Fair Forms: ASU Anesthesia D/C Instruction, Discharge POC-Surgical Service Treatment or Instructions: #1 activities within moderation encouraged. #2 follow up in my office by appointment in about 1 week. Call for appointment. #3 the wounds covered clean and dry until office visit. #4 hold off on school/work until evaluation in office. #5 may shower in 48 hours, keep operated area as dry as possible. #6 discharge from ambulatory when ASU criteria met. #7 medications per medication reconciliation sheet. #8 Percocet by prescription.. Also may have one Percocet up to every 2 hours when necessary for pain greater than 4 out of 10 while in the ASU Prescriptions: Oxycodone HCl/Acetaminophen [Percocet 5-325 mg Tablet] 1 tab PO ASDIR PRN #15 tab PRN Reason: Referrals: JULIANA MCKEE MD [ACTIVE STAFF] - Discharge Diet: As Tolerated Respiratory Treatments at Home: Deep Breathing/Coughing Discharge Activity: Activity As Tolerated Report the Following to Your Physician Immediately: Shortness of Breath, Fever over 101 Degrees, Unusual Bleeding
--- NOTE | 2016-08-28 12:11 | Operative Report ---
Operative Report DATE OF SURGERY: 08/28/16 PREOPERATIVE DIAGNOSIS: #1 lymphoma. #2 history of right breast cancer. POSTOPERATIVE DIAGNOSIS: #1 lymphoma. #2 history of right breast cancer. OPERATION: #1 ultrasound evaluation of the left internal jugular vein. #2 insertion of Port-A-Cath via left internal jugular vein under real-time access. #3 angiogram and interpretation. SURGEON: JULIANA STALLWORTH YARN DRY ROOM WORKER: none ANESTHESIA: Moderate Sedation TISSUE REMOVED OR ALTERED: Not applicable. COMPLICATIONS: None ESTIMATED BLOOD LOSS: 5 mL. INTRAOPERATIVE FINDINGS: Of a quite small left internal jugular vein. Moderate challenge encountered in accessing it. Ultrasound of great help in this. Nice position of the catheter with its tip just down in the right atrium. Easy egress of blood and ingress of heparinized solution through the single port. Subcutaneous tissues, the port was anchored at 2 points in the deeper tissues to posterior I'll rotation. The position of the port was marked in ink. PROCEDURE: After obtaining informed consent, the patient was taken to the Automobile Mechanic Supervisor and positioned supine. The left neck and chest were prepared with chlorhexidine and draped out with sterile linen. After the " universal timeout", in which it was verified that the patient continued to receive antibiotic, the procedure commenced. A steriley sheathed ultrasound probe was used to evaluate the left internal jugular vein. Local anesthesia was infiltrated adjacent to the probe. Access into the [right] internal jugular vein was obtained using a micropuncture needle, followed by micropuncture wire and then a micropuncture catheter. This was followed by introduction of a 0.035 guidewire the tip of which was placed down into the inferior vena cava . The port sites was marked , locally anesthetized and incision made. Dissection now proceeded to the deep subcutaneous subcutaneous tissues so that a pocket for the port was made. Meticulous hemostasis was secured and the catheter was tunneled between the 2 incisions. Proximally, the catheter was now positioned using a peel-away sheath. Distally the catheter was tailored to an appropriate length and then mated to the port using the contained fixating device. The port was now placed in the pocket and the catheter optimally positioned. The port was accessed with a Blackwood needle and an angiogram done under digital subtraction. The findings as dictated. With adequate and satisfactory positioning, both lumens of the chamber were irrigated with heparinized solution. The wounds were now closed using interrupted 3-0 PDS to the subcutaneous tissues and a continuous subcuticular suture of 4-0 Monocryl to the skin. These are reinforced with Steri-Strips over benzoin and then dressings applied. Copies of the dictated operative report for Dr. Juliana Piper MD.
[2016-08-28 12:58] VITALS: BP 116/55
== END 2016-08-28 13:00 | disposition home or self-care (01) ==
LOC: CCL 08:44
PROVIDERS: ATTEND Surgery
PROC: 05H633Z Insertion of Infusion Device into Left Subclavian Vein, Percutaneous Approach (ICD-10-PCS; principal; 2016-08-28)
DX: C83.38 Diffuse large B-cell lymphoma, lymph nodes of multiple sites (principal); C85.90 Non-Hodgkin lymphoma, unspecified, unspecified site; I10 Essential (primary) hypertension; I25.10 Atherosclerotic heart disease of native coronary artery without angina pectoris; E78.00 Pure hypercholesterolemia, unspecified; Z95.5 Presence of coronary angioplasty implant and graft; Z98.890 Other specified postprocedural states; Z79.899 Other long term (current) drug therapy; Z79.82 Long term (current) use of aspirin; Z85.3 Personal history of malignant neoplasm of breast
CPT/HCPCS: 36415; 85027; 80048; 36561; 76937; 77001; Q9967; J2250; J3490 ×2; J0690; J3010; J1644